=== PATIENT | female | born 1995 | race Caucasian/White ===

== ENCOUNTER 2019-03-15 09:13 | Inpatient (IN) ==
--- NOTE | 2019-03-15 09:55 | Anesthesia Evaluation PreOp ---
Date of Encounter: 03/15/19 Time of Encounter: 09:53 - Past History Planned Operation: Del, G1 induction 39.4wks, Cardiac History: Denies any Significant Hx Pulmonary History: Denies Any Significant HX BRUSH PAINTER History: Other (scolosis, occ radiculopathy reported on right side down to thigh, pings and needles no numbess reported.) Other Medical History: Renal, Other (recent acute cholecystitis was managed with antibotics/pain med/rest/. with intense pain right upper quad and pain with breathing.) Anesthesia History: No Prior Anesthetic Complications, Past Anesthesia Alcohol Use: none Drug use: none Medications and Allergies Azithromycin [Zithromax] 4 tab PO DAILY #4 tablet 06/15/15 [Rx] Sulfamethoxazole/Trimeth DS [Bactrim DS] 1 each PO BID #14 tablet 06/15/15 [Rx] Tylenol 06/15/15 [History] Famotidine [Pepcid] 20 mg PO BID #20 tablet 05/07/17 [Rx] PredniSONE [Deltasone] 40 mg PO DAILY 4 Days tablet 05/07/17 [Rx] EPINEPHrine [Epipen] 0.3 mg IM ONCE PRN #1 kit 05/05/18 [Rx] predniSONE [Prednisone] 50 mg PO DAILY #5 tablet 05/05/18 [Rx] Allergy/AdvReac Type Severity Reaction Status Date / Time ketorolac [From Toradol] Allergy See Verified 02/11/19 11:01 Comments Anesthesia Exam - HEENT Pupil (Motor): Pupils equal Mallampati: III Teeth: Normal Oral Opening: Greater than 3 - BRUSH PAINTER LOC: Oriented BRUSH PAINTER Motor: Normal RUE, Normal LUE, Normal RLE, Normal LLE, Normal Face BRUSH PAINTER Sensory: Normal: RUE, LUE, RLE, LLE, Face - Cardiac Rhythm: Regular Murmur: None - Pulmonary Breath Sounds: bilateral Clear Respiratory Effort: Symmetrical Anesthesia Assess/Plan ASA Score: 2 Level of consciousness: Cooperative, Oriented Anesthetic Plan: General, Spinal, Epidural Monitoring Plan: Standard Monitors Recovery Plan: PACU
[2019-03-15] MEDS ORDERED: Lidocaine -MPF 1% 2 ML VIAL ONE (09:59)
[2019-03-15 10:33] LABS: Amphetamine Screen,Urine Negative ng/mL (Cutoff=1000); Barbiturate Screen,Urine Negative ng/mL (Cutoff=200); Benzodiazepines Screen,Urine Negative ng/mL (Cutoff=200); Cannabinoid Screen,Urine Negative ng/mL (Cutoff = 50); Cocaine Screen,Urine Negative ng/mL (Cutoff= 300); Opiate Screen,Urine Negative ng/mL (Cutoff=300); Phencyclidine Screen,Urine Negative ng/mL (Cutoff=25)
[2019-03-15 10:44] LABS: Alanine Aminotransferase 23 Units/L (7-52); Aspartate Amino Transferase 21 Units/L (13-39); BUN/Creatinine Ratio 9 (6-26); Blood Urea Nitrogen 14 mg/dL (6-20); Lactate Dehydrogenase 159 Units/L (140-271); Uric Acid 7.9 mg/dL (2.3-7.6); eGFR For African Americans 49 (> 60); eGFR For Non-African Americans 40 (> 60)
[2019-03-15 10:50] LABS: Creatinine,Urine 28 mg/dL
[2019-03-15 11:11] LABS: Basophils % 0.3 %; Eosinophils # 0.1 K/mcL (0.0-0.6); Eosinophils % 0.7 %; Hematocrit 27.8 % (35.3-44.9); Hemoglobin 8.7 g/dL (11.5-15.4); Immature Granulocytes % 1.6 % (0-4); Immature Platelets 3.5 % (1.1-6.1); Lymphocytes # 2.8 K/mcL (0.6-4.6); Lymphocytes % 18.6 %; Mean Corpuscular HGB Conc 31.3 g/dL (31.6-35.5); Mean Corpuscular Hemoglobin 27.7 pg (28.0-33.3); Mean Corpuscular Volume 88.5 fL (83.0-100.0); Mean Platelet Volume 10.2 fL (9.4-12.4); Monocytes # 0.7 K/mcL (0.0-1.3); Monocytes % 4.6 %; Neutrophils # 11.3 K/mcL (1.6-8.9); Nucleated Red Blood Cells 0.1 /100 WBC (0); Platelet Count 362 K/mcL (140-400); Red Blood Count 3.14 M/mcL (3.82-4.97); Red Cell Distribution Width 16.2 % (11.5-14.5); Segmented Neutrophils % 74.2 %; White Blood Count 15.2 K/mcL (4.3-11.1)
[2019-03-15 11:12] LABS: Basophils # 0.1 K/mcL (0.0-0.2)
[2019-03-15] MEDS ORDERED: Lidocaine 1% 20 ML MDV INFILT PRN (11:15)
[2019-03-15] MEDS ORDERED: Ondansetron 4 MG/2 ML VIAL IVP PRN (11:15)
[2019-03-15] MEDS ORDERED: Naloxone 0.4 MG/ML INJ IVP PRN (11:15)
[2019-03-15] MEDS ORDERED: Famotidine 20 MG/2 ML VIAL IVP PRN (11:15)
[2019-03-15] MEDS ORDERED: *HR* Nalbuphine 10 MG/ML AMPUL IVP PRN (11:15)
[2019-03-15] MEDS ORDERED: Metoclopramide 10 MG/2 ML VIAL IVP PRN (11:15)
--- NOTE | 2019-03-15 11:49 | OB/GYN History & Physical ---
Date of Encounter: 03/15/19 Time of Encounter: 11:30 Assessment and Plan (1) 39 weeks gestation of Current visit: Yes Status: Acute (2) Type O blood, Rh negative Current visit: Yes Status: Acute Cord blood will be collected at delivery (3) Intrauterine Current visit: Yes Status: Acute (4) Intact amniotic membranes during in third trimester Current visit: Yes Status: Acute (5) Gestational hypertension affecting first Current visit: Yes Status: Acute Admit to L&D for induction of labor Cook catheter with 60 mL in each balloon 50 g misoprostol by mouth Continuous electronic monitoring Pain management plan is epidural-may have upon request Continue to monitor blood pressures at least every hour Labs-Type and screen in addition to already existing PIH labs Plan of care per consult with Dr. Bhatt Anticipate vaginal delivery (6) Late care affecting in third trimester Current visit: Yes Status: Acute Patient was unaware she was until 35 weeks. She is followed with Dr. Thomas since she found out she was History of Present Illness Chief complaint: IOL for Gest Htn HPI: Ms. Osorio is a 23 year old female at 39 weeks 4 days gestation with an estimated date of of 03/18/19 dated by third trimester ultrasound. She presents from the office today with concern for gestational hypertension progressing and possible preeclampsia. She had elevated blood pressures in the office. Her blood pressures on the unit have been normotensive and her PIH evaluation is negative today. However, due to previous 24 urine with elevated protein as well as blood pressures ranging higher than 140 over higher the 90 the decision was made in consult with Dr. Bhatt to proceed with induction. Her has been complicated by late care and gallstones. She has been followed briefly by Dr. Thomas. records are available electronically and have been reviewed. Labs: O- GBS- Hep B- HIV- T. Palladium GC/CL- Rubella nonimmune Varicella nonimmune Past Med Surg Social Fam HX - Past Medical History Medical history: no medical history Psychiatric history: no psych history - Past Surgical History Additional surgical history: dental surgery - Social History Smoking Status: Never smoker Smokeless Tobacco Status: No Alcohol use: none Drug use: none - Family History Mother Living Status: Still Living Hx Family Cardiac Disorders: Yes (MIx5) Hx Family Medical Disorders: Yes (breast tumors, PCOS) Obstetrical History - Pregnancies : 1 Para: 0 Term: 0 : 0 Ab's: 0 Livin Medications and Allergies Gabapentin [Gralise] 300 mg PO DAILY 03/15/19 [History] Pedi Mv No.79/Ferrous Fumarate [Flintstones with Iron Tab Chew] 18 mg PO DAILY 03/15/19 [History] Allergy/AdvReac Type Severity Reaction Status Date / Time ketorolac [From Toradol] Allergy Hives Verified 03/15/19 10:54 Review of System OB All systems PM: reviewed and no additional remarkable complaints except as stated Exam - Constitutional Constitutional: well developed, well nourished, no acute distress, morbidly obese - HEENT HEENT: PERRL, Normocephaly, Mucus Membranes Moist - Neck Neck exam: full ROM - Lungs Respiratory exam: CTAB - Cardiovascular Cardiovascular exam: RRR, +S1, +S2 - Breasts Breast: bilateral: normal - Abdomen Abdomen: Present: bowel sounds normal, gravid, non tender - Extremities Extremities exam: full ROM, normal capillary refill, normal inspection, radial pulses palpable and symmetrical - Vulva Vulva: bilateral: normal - Vagina Vagina: Present: normal moisture - Cervix Dilation: 0 Effacement: 90 Station: -2 - Uterus Uterus exam: Present: normal size, normal contour - Adnexa Adnexa: bilateral: normal - Anus/Rectum Anus/Rectum: Present: normal perianal skin Results Result Diagrams: 03/15/19 09:55 03/15/19 09:55 Abnormal lab results WBC 15.2 K/mcL (4.3-11.1) H 03/15/19 09:55 RBC 3.14 M/mcL (3.82-4.97) L 03/15/19 09:55 Hgb 8.7 g/dL (11.5-15.4) L 03/15/19 09:55 Hct 27.8 % (35.3-44.9) L 03/15/19 09:55 MCH 27.7 pg (28.0-33.3) L 03/15/19 09:55 MCHC 31.3 g/dL (31.6-35.5) L 03/15/19 09:55 RDW 16.2 % (11.5-14.5) H 03/15/19 09:55 Neutrophils # 11.3 K/mcL (1.6-8.9) H 03/15/19 09:55 Nucleated RBCs/100 WBC 0.1 /100 WBC (0) H 03/15/19 09:55 Creatinine 1.57 mg/dL (0.60-1.20) H 03/15/19 09:55 Est GFR ( Amer) 49 (> 60) L 03/15/19 09:55 Est GFR (Non-Af Amer) 40 (> 60) L 03/15/19 09:55 Uric Acid 7.9 mg/dL (2.3-7.6) H 03/15/19 09:55 All other labs normal. - VTE Reasons for not Prescribing Prophylaxis: Treatment not Indicated - Low risk for VTE
[2019-03-15] MEDS ORDERED: miSOPROStol 25 MCG TABLET PO PRN (11:56)
[2019-03-15] MEDS: Ringers Solution, Lactated 1,000 ML IVC SCH ×2 (12:03→15:43)
--- NOTE | 2019-03-15 12:18 | OB Labor Progress Note ---
Date of Encounter: 03/15/19 Time of Encounter: 12:15 Labor Progress Note - Subjective Subjective: Patient denies any contractions - Cervix Cervix: Fingertip/90/-2 - Heart Tones Heart Tones: Baseline 120 Moderate variability Accelerations present 15x15 No decelerations FHR Category I - [place]: No uterine activity - Interventions Interventions: SVE Cook catheter placed with 60cc saline per balloon - Plan Physician notified: No Plan: Continue induction management Recheck cervix in 4 hours Anticipate vaginal delivery
[2019-03-15] MEDS ORDERED: EPHEDrine 50 MG/ML VIAL ONE (15:03)
[2019-03-15] MEDS: Epidural Premix (fent/bupiv) 110 ML EP SCH ×2 (15:39→22:21)
[2019-03-15] MEDS ORDERED: EPHEDrine 50 MG/ML VIAL IVP PRN (15:57)
[2019-03-15] MEDS ORDERED: Epidural Premix (fent/bupiv) 110 ML EP SCH (16:00)
--- NOTE | 2019-03-15 16:02 | OB Labor Progress Note ---
Date of Encounter: 03/15/19 Time of Encounter: 15:54 Labor Progress Note - Subjective Subjective: Pt now comfortable with epidural - Cervix Cervix: Peters balloon still in place - Heart Tones Heart Tones: Baseline 135 Moderate variability Accelerations present 15 x 15 No decelerations FHR category I - [place]: Contractions every 2 minutes and palpate mild to moderate - Interventions Interventions: Spontaneously ruptured at 1516 moderate amount of clear fluid SVE shows Cook catheter not ready to be removed - Plan Physician notified: No Plan: Continue induction management Recheck cervix in 4 hours Monitor her temperature every 2 hours and will start antibiotics if any signs of chorioamnionitis Anticipate vaginal delivery Dr. Bhatt updated on plan of care
--- NOTE | 2019-03-15 16:03 | Anesthesia Procedures ---
Date of Encounter: 03/15/19 Time of Encounter: 15:22 Procedures: Anesthesia - Epidural/Spinal Patient ID/Chart reviewed: Yes Patient examined: Yes OB Eval: Gestational age: term OB Eval: : 1 OB Eval: Contractions: Non-stressed pattern Consent Obtained: Yes Supplemental Oxygen: None/Room Air Site Prep: Aseptic Technique, Sterile prep and drape, 0.5% Chlorhexidine/Alcohol Patient position: upright Local Anesthetic: Lidocaine 1% Amount of Local Anesthetic used: 2 Touhy Needle Gauge: 18 Touhy Needle Depth (cm): 7 Catheter Depth at Skin (cm): 12 Test Dose (1.5% Lido + Epi): Volume given (mls): 3 Test Dose Result: Negative Loading Dose: Other: 8ml from solution Loading Dose Administered: Thru Catheter Infusion Med: 0.125% Bupivacaine w/ 2 mcg/ml Fentanyl Infusion Rate (mls/hr): [address]: Tegaderm, Tape Interspace Used: L3-L4 Loss of Resistance (ARTURO): Yes (saline) Blood: No CSF: Yes (25g purposeful) Paresthesia: No Procedure: first cath pass with heme cleared with flush, no back gtt of heme, positive test, removed, same whole used, up an interspace to ARTURO and easy thread to 12 at skin, negative test, kelly well, vss though out procedure, FHR stable per team.
[2019-03-15] MEDS ORDERED: Ropivacaine/PF 0.2% 20 ML VIAL ONE (18:53)
--- NOTE | 2019-03-15 18:56 | OB Labor Progress Note ---
Date of Encounter: 03/15/19 Time of Encounter: 18:54 Labor Progress Note - Subjective Subjective: Patient not comfortable with epidural and anesthesia been aware - Cervix Cervix: 4/90/-1 - Heart Tones Heart Tones: Baseline 150 Moderate variability Accelerations present 15 x 15 No decelerations FHR category I - [place]: Contractions every 1-2 minutes on toco and palpate mild to moderate. Tachysystole noted over an average of 30 minutes. - Interventions Interventions: SVE Cook catheter removed IUPC placed - Plan Physician notified: Yes Physician notified details: Dr. Bhatt consulted re: Tachysystole Plan: Continue induction management Monitor for 30 minutes to an hour and will make plan based on mvus Frequent position changes with peanut ball Anticipate vaginal delivery
[2019-03-15] MEDS ORDERED: Lidocaine/EPI 1:200k 2% PF 20 ML VIAL ONE ×2 (19:34→23:58)
[2019-03-15] MEDS ORDERED: Terbutaline 1 MG/ML VIAL SQ ONE (19:37)
--- NOTE | 2019-03-15 19:48 | OB Labor Progress Note ---
Date of Encounter: 03/15/19 Time of Encounter: 19:46 Labor Progress Note - Subjective Subjective: Patient now comfortable with epidural - Heart Tones Heart Tones: Baseline 170 Moderate variability Accelerations present 15 x 15 No decelerations FHR category II - [place]: IUPC shows continued tachysystole - Interventions Interventions: Discussed with Dr. Miller Powellaline ordered - Plan Physician notified: Yes Physician notified details: Consult made for terbutaline order Plan: Continue induction management 500 mL bolus Terbutaline 0.25 mg subcutaneous Frequent position changes Anticipate vaginal delivery
[2019-03-15] MEDS ORDERED: NIFEdipine 10 MG CAPSULE PO ONE (20:15)
[2019-03-15] MEDS ORDERED: Penicillin G Potassium 5,000,000 UNIT in 0.9 % Sodium Chloride Mini Bag 100 ML IVPB ONE (20:57)
[2019-03-15] MEDS: Ampicillin 2 GM in 0.9 % Sodium Chloride Mini Bag 100 ML IVPB SCH (21:47)
[2019-03-15] MEDS ORDERED: SODIUM CHLORIDE 0.9% IVPB SCH (22:00)
[2019-03-15] MEDS ORDERED: GENTAMICIN IVPB SCH (22:00)
[2019-03-15] MEDS: Oxytocin 20 units/ LR 1000 mL 20 UNIT/1,000 ML BAG IVC SCH (22:04)
--- NOTE | 2019-03-15 23:28 | OB Labor Progress Note ---
Date of Encounter: 03/15/19 Time of Encounter: 21:40 Labor Progress Note - Subjective Subjective: Pt comfortable with epidural - Vital Signs Vital Signs: T 102.7 - Heart Tones Heart Tones: Baseline 180 Minimal variability No accelerations Variable decelerations FHR Category II - [place]: IUPC with contractions every 2-3 minutes - Interventions Interventions: Start amp and gent - Plan Physician notified: Yes Physician notified details: Dr. Bhatt aware of Category II tracing and fever. Plan: Continue induction management Abx as ordered Frequent position changes Anticipate POC per consult with Dr. Bhatt.
--- NOTE | 2019-03-15 23:33 | OB Labor Progress Note ---
Date of Encounter: 03/15/19 Time of Encounter: 23:30 Labor Progress Note - Subjective Subjective: Pt comfortable with epidural - Heart Tones Heart Tones: Baseline 150 Minimal variability Accelerations present Variable decelerations FHR Category II - [place]: IUPC with contractions every 1-4 minutes - Plan Physician notified: No Plan: Continue induction management Frequent position changes Continue abx Anticipate Dr. Bhatt aware of POC and agrees
--- NOTE | 2019-03-16 00:12 | OB Labor Progress Note ---
Date of Encounter: 03/16/19 Time of Encounter: 00:10 Labor Progress Note - Subjective Subjective: Pt semi-comfortable with epidural - anesthesia notified and to bedside. - Cervix Cervix: 5/90/-2 - Heart Tones Heart Tones: Baseline 145 Moderate variability Accelerations present 15x15 No decelerations FHR Category I - [place]: IUPC shows contractions every 2 minutes - Interventions Interventions: SVE Peanut ball to the right side - Plan Physician notified: No Plan: Continue induction management Continue abx Hourly position changes Anticipate
--- NOTE | 2019-03-16 00:13 | Anesthesia Progress Note ---
Date of Encounter: 03/16/19 Time of Encounter: 00:08 Anesthesia Note - Note Note: 03/16/19 00:08 pt bolus several times with 0.2% rop over last 6hrs, last bolus with 6ml lido with epi, c/o pain bilateral hips and canal, told during checks pt very uncomfortable. informed patient if this bolus does not help, recommendation for another epidural at different level.
[2019-03-16] MEDS ORDERED: Penicillin G Potassium 2,500,000 UNIT in 0.9 % Sodium Chloride 100 ML IVPB SCH (01:00)
[2019-03-16] MEDS: Ampicillin 2 GM in 0.9 % Sodium Chloride Mini Bag 100 ML IVPB SCH ×3 (03:37→17:53)
[2019-03-16] MEDS: Epidural Premix (fent/bupiv) 110 ML EP SCH ×2 (05:35→11:32)
[2019-03-16] MEDS: Oxytocin 20 units/ LR 1000 mL 20 UNIT/1,000 ML BAG IVC SCH (07:40)
[2019-03-16] MEDS ORDERED: D5% in Lactated Ringers 1,000 ML IVC SCH (08:30)
--- NOTE | 2019-03-16 11:59 | OB Labor Progress Note ---
Date of Encounter: 03/16/19 Time of Encounter: 11:58 Labor Progress Note - Subjective Subjective: Pt comfortable with epidural, no complaints - Cervix Cervix: /-2
[2019-03-16] MEDS ORDERED: Aminoglycoside Consult 1 EACH MC ONE (12:38)
[2019-03-16] MEDS ORDERED: Ropivacaine/PF 0.2% 20 ML VIAL ONE (13:27)
[2019-03-16] MEDS ORDERED: Ropivacaine/PF 0.2% 20 ML VIAL EP ONE (13:33)
--- NOTE | 2019-03-16 13:35 | Anesthesia Progress Note ---
Date of Encounter: 03/16/19 Time of Encounter: 13:34 Anesthesia Note - Note Note: 03/16/19 13:34 ropivacaine 0.2% 6cc bolus for break through pain, VSS
--- NOTE | 2019-03-16 14:40 | OB Labor Progress Note ---
Date of Encounter: 03/16/19 Time of Encounter: 14:38 Labor Progress Note - Subjective Subjective: Pt reports some rectal pressure with contractions. - Vital Signs Vital Signs: VSS - Cervix Cervix: 4-5/70/0, anterior aspect of cervix is swollen, caput noted. - Heart Tones Heart Tones: Cat I - Plan Physician notified: Yes Physician notified details: Dr. New notified of no cervical change with more than 4 hours of adequate labor. Cervix now swollen.
[2019-03-16] MEDS: Ringers Solution, Lactated 1,000 ML IVC SCH (15:49)
[2019-03-16] MEDS ORDERED: *HR* Oxytocin 10 UNIT/ML VIAL IM ONE ×2 (16:49)
[2019-03-16] MEDS ORDERED: Chloroprocaine/PF 20 ML VIAL INFILT ONE ×2 (16:49)
[2019-03-16] MEDS ORDERED: *HR* Morphine Sulfate/PF 10 MG/10 ML AMPUL ONE (16:50)
[2019-03-16] MEDS ORDERED: Ondansetron 4 MG/2 ML VIAL IVP PRN ×2 (17:01→20:14)
[2019-03-16] MEDS ORDERED: *HR* Meperidine 25 MG/ML SYRINGE IVP PRN (17:01)
--- NOTE | 2019-03-16 17:15 | OB/GYN Procedure Note ---
Section - Date of procedure: 03/16/19 Preop diagnosis: arrest of descent, other malpresentation Post-op diagnosis: same Procedure: primary low transverse Surgeon: Elvi Mercer Blood Loss: 400 Was there an integration assistant present: No Director Of Perioperative Services: Marcell Hopson Anesthesia Type: Epidural section complications: none Disposition: PACU Specimens: Placenta, Cord blood - Infant (s) Infant A Infant Delivery Date: 03/16/19 Delivery Time: 16:44 Presentation: vertex Position: LOP Route of delivery: other Gender: Female Viability: Viable Pounds: 7 Ounces: 0 Gram Weight: 3.17 kg at 1 minute: 8 at 5 minutes: 9 Shoulder Dystocia: not encountered Specimens collected: cord blood Placenta: partial extraction - Narrative Narrative: Preoperative Diagnosis is failure to progress Postoperative diagnosis Mal presentation asynclitic left occiput posterior presentation Findings are normal uterus and adnexa. Clear fluid. A viable female infant in an asynclitic left occiput posterior presentation. Apgars are [address] New Anesthesia is epidural History Sharri is a 23-year-old 1 female who presented to labor and delivery for induction of labor for mild elevated blood pressures. She underwent labor and elects in and proceeded to 5 cm dilated. She had spontaneous rupture of membranes. She labored for 24-25 hours with spontaneous rupture of membranes her cervix progressed to 5 cm and she had arrest of dilation. There is also arrestive descent of presenting part. At that time she desired to proceed with section. She had 1 episode of fever during labor and she had been placed on ampicillin and gentamicin prior to delivery. Procedure Gibbons taken to the operating suite and after adequate epidural anesthesia was assured she is prepped and draped in usual sterile fashion. a Pfannenstiel incision was created and taken down through the subcutaneous fat and fascia to the rectus muscles. Rectus muscles were irrigated in the midline without any difficulty or consequence to bowel or bladder a bladder flap was created. Uterus was entered in a low transverse fashion. Upon entering the ear clear fluid was noted. A viable female infant was atraumatically delivered from the uterus without difficulty. She was found to be very low within the pelvis in an occiput posterior asynclitic presentation. After delivery of the baby cord was doubly clamped and cut and the infant was handed to our nurses in attendance. Apgars were 8 and 9 at 1 and 5 minutes respectively. When all placental findings were swept clean from the uterus the uterus was closed in one length of Vicryl running interlocking fashion. Copious irrigation was performed. Surgical sites were inspected. Hemostasis was assured. Uterus and adnexa were examined noted to be within normal limits. The uterus was replaced within the abdominal cavity. Again copious irrigation was performed. Surgical sites were inspected. Hemostasis was assured. When all sponge lap and needle and instrument counts were correct 2 the fascia was closed with one length of Vicryl in a running fashion. Again copious irrigation was performed surgical sites were inspected and hemostasis was assured the subcutaneous tissue was reapproximated in interrupted fashion and the skin was reapproximated with madelin. At the end the procedure all sponge lap needle Messman counts were correct 2 the patient and baby were doing well. She will be maintained on antibiotics for minimum of 2 doses postoperatively.
[2019-03-16] MEDS: *HR* HYDROmorphone (PF) 1 MG/ML SYRINGE IVP PRN ×2 (17:53→19:31)
--- NOTE | 2019-03-16 19:53 | Anesthesia Evaluation Post Op ---
Date of Encounter: 03/16/19 Time of Encounter: 19:52 - Vital Signs Vital Signs: 130/80 76 16 - Lungs Lungs: Clear Ascult./Percussion - Cardiovascular Regular Rate - Mental Status Mental Status: Alert & Oriented, Answers Appropriately - Pain Pain Scale: 4 Pain Scale used: Numeric (1 - 10) - Nausea Vomiting Nausea Vomiting: Not Present - Hydration Hydration: NPO, Peters catheter - Discharge PostOp Status: Transfer Patient to floor (fully awake , VSS, no anesthetic complications)
[2019-03-16] MEDS ORDERED: Rho Immune Globulin 1,500 UNIT SYRINGE IM ONE (20:14)
[2019-03-16] MEDS ORDERED: Oxytocin 20 units/ LR 1000 mL 20 UNIT/1,000 ML BAG IVC SCH (20:14)
[2019-03-16] MEDS ORDERED: Sennosides 8.6 MG TABLET PO PRN (20:14)
[2019-03-16] MEDS ORDERED: *HR* OxyCODONE/APAP 5/325 TABLET PO PRN (20:14)
[2019-03-16] MEDS ORDERED: Metoclopramide 10 MG/2 ML VIAL IVP PRN (20:14)
[2019-03-16] MEDS ORDERED: Ampicillin 2 GM in 0.9 % Sodium Chloride Mini Bag 100 ML IVPB SCH (21:07)
[2019-03-16] MEDS: *HR* OxyCODONE Immed Rel 5 MG TABLET PO PRN (22:19)
[2019-03-16] MEDS ORDERED: Gentamicin 100 MG in 0.9 % Sodium Chloride 100 ML IVPB SCH ×2 (23:00)
[2019-03-17] MEDS: Ibuprofen 600 MG TABLET PO PRN ×2 (02:49→08:25)
[2019-03-17 06:54] LABS: Basophils # 0.1 K/mcL (0.0-0.2); Basophils % 0.3 %; Eosinophils # 0.1 K/mcL (0.0-0.6); Eosinophils % 0.4 %; Hemoglobin 8.5 g/dL (11.5-15.4); Lymphocytes # 3.4 K/mcL (0.6-4.6); Lymphocytes % 15.4 %; Mean Corpuscular HGB Conc 31.5 g/dL (31.6-35.5); Mean Corpuscular Hemoglobin 27.2 pg (28.0-33.3); Mean Corpuscular Volume 86.5 fL (83.0-100.0); Mean Platelet Volume 9.7 fL (9.4-12.4); Monocytes # 0.9 K/mcL (0.0-1.3); Monocytes % 4.1 %; Neutrophils # 17.3 K/mcL (1.6-8.9); Nucleated Red Blood Cells 0.2 /100 WBC (0); Platelet Count 373 K/mcL (140-400); Red Blood Count 3.12 M/mcL (3.82-4.97); Red Cell Distribution Width 16.5 % (11.5-14.5); Segmented Neutrophils % 78.8 %
[2019-03-17] MEDS: Prenatal Vit/FA 1 EACH TABLET PO SCH (08:18)
--- NOTE | 2019-03-17 10:15 | Discharge Summary ---
Date of Encounter: 03/17/19 Time of Encounter: 10:13 - Discharge Diagnosis (1) Status post delivery Status: Acute (2) Acute blood loss as cause of postoperative anemia Status: Acute (3) Breast feeding status of mother Status: Acute - Discharge Medications Prescriptions: No Action Pedi Mv No.79/Ferrous Fumarate [Flintstones with Iron Tab Chew] 18 mg PO DAILY Gabapentin [Gralise] 300 mg PO DAILY Home Medications: Gabapentin [Gralise] 300 mg PO DAILY 03/15/19 [History] Pedi Mv No.79/Ferrous Fumarate [Flintstones with Iron Tab Chew] 18 mg PO DAILY 03/15/19 [History] Allergies/Adverse Reactions: Allergy/AdvReac Type Severity Reaction Status Date / Time acetaminophen [From Tylenol] Allergy See Verified 03/16/19 16:10 Comments ketorolac [From Toradol] Allergy Hives Verified 03/15/19 10:54 Data Procedures and tests throughout hospitalization: Laboratory Tests 03/15/19 03/15/19 03/15/19 09:55 09:55 09:55 WBC 15.2 H RBC 3.14 L Hgb 8.7 L Hct 27.8 L MCV 88.5 MCH 27.7 L MCHC 31.3 L RDW 16.2 H Plt Count 362 MPV 10.2 Immature Gran % 1.6 Seg Neutrophils % 74.2 Lymphocytes % 18.6 Monocytes % 4.6 Eosinophils % 0.7 Basophils % 0.3 Neutrophils # 11.3 H Lymphocytes # 2.8 Monocytes # 0.7 Eosinophils # 0.1 Basophils # 0.1 Nucleated RBCs/100 WBC 0.1 H Immature Plt Fraction 3.5 BUN 14 Creatinine 1.57 H Est GFR ( Amer) 49 L Est GFR (Non-Af Amer) 40 L BUN/Creatinine Ratio 9 Uric Acid 7.9 H AST 21 ALT 23 Lactate Dehydrogenase 159 Urine Creatinine 28 Protein/Creatinin Ratio TNP Urine Total Protein < 4 Random Gentamicin Urine Opiates Screen Ur Buprenorphine Scrn Ur Barbiturates Screen Ur Phencyclidine Scrn Ur Amphetamines Screen U Benzodiazepines Scrn Urine Cocaine Screen U Marijuana (THC) Screen Ur Drug Screen Interp Screen Baby's Blood Type Mother's Blood Type Rhogam Indicated Rhogam Req for Mother 03/15/19 03/16/19 03/16/19 09:55 06:17 17:40 WBC RBC Hgb Hct MCV MCH MCHC RDW Plt Count MPV Immature Gran % Seg Neutrophils % Lymphocytes % Monocytes % Eosinophils % Basophils % Neutrophils # Lymphocytes # Monocytes # Eosinophils # Basophils # Nucleated RBCs/100 WBC Immature Plt Fraction BUN Creatinine Est GFR ( Amer) Est GFR (Non-Af Amer) BUN/Creatinine Ratio Uric Acid AST ALT Lactate Dehydrogenase Urine Creatinine Protein/Creatinin Ratio Urine Total Protein Random Gentamicin 9.6 Urine Opiates Screen Negative Ur Buprenorphine Scrn Negative Ur Barbiturates Screen Negative Ur Phencyclidine Scrn Negative Ur Amphetamines Screen Negative U Benzodiazepines Scrn Negative Urine Cocaine Screen Negative U Marijuana (THC) Screen Negative Ur Drug Screen Interp See Below Screen NEGATIVE Baby's Blood Type O RH POSITIVE Mother's Blood Type O RH NEGATIVE Rhogam Indicated YES Rhogam Req for Mother 1 03/17/19 06:24 WBC 22.0 H RBC 3.12 L Hgb 8.5 L Hct 27.0 L MCV 86.5 MCH 27.2 L MCHC 31.5 L RDW 16.5 H Plt Count 373 MPV 9.7 Immature Gran % 1.0 Seg Neutrophils % 78.8 Lymphocytes % 15.4 Monocytes % 4.1 Eosinophils % 0.4 Basophils % 0.3 Neutrophils # 17.3 H Lymphocytes # 3.4 Monocytes # 0.9 Eosinophils # 0.1 Basophils # 0.1 Nucleated RBCs/100 WBC 0.2 H Immature Plt Fraction BUN Creatinine Est GFR ( Amer) Est GFR (Non-Af Amer) BUN/Creatinine Ratio Uric Acid AST ALT Lactate Dehydrogenase Urine Creatinine Protein/Creatinin Ratio Urine Total Protein Random Gentamicin Urine Opiates Screen Ur Buprenorphine Scrn Ur Barbiturates Screen Ur Phencyclidine Scrn Ur Amphetamines Screen U Benzodiazepines Scrn Urine Cocaine Screen U Marijuana (THC) Screen Ur Drug Screen Interp Screen Baby's Blood Type Mother's Blood Type Rhogam Indicated Rhogam Req for Mother Labs on day of discharge: Labs from last 24 hours 03/17/19 03/16/19 06:24 17:40 WBC 22.0 H RBC 3.12 L Hgb 8.5 L Hct 27.0 L MCV 86.5 MCH 27.2 L MCHC 31.5 L RDW 16.5 H Plt Count 373 MPV 9.7 Immature Gran % 1.0 Seg Neutrophils % 78.8 Lymphocytes % 15.4 Monocytes % 4.1 Eosinophils % 0.4 Basophils % 0.3 Neutrophils # 17.3 H Lymphocytes # 3.4 Monocytes # 0.9 Eosinophils # 0.1 Basophils # 0.1 Nucleated RBCs/100 WBC 0.2 H Screen NEGATIVE Baby's Blood Type O RH POSITIVE Mother's Blood Type O RH NEGATIVE Rhogam Indicated YES Rhogam Req for Mother 1 Date of admission: 03/15/19 09:13 Primary care physician: PCP NONE Consults: 03/16/19 20:14 Consult to Full Stack Web Developer ([employer]) [CONS] Routine Reason For Exam: Reason for SW Consult: late care Discharging clinician: Mackenzie Franklin Anticipated date of discharge: 03/17/19 - Discharge Instructions Follow Up With: NONE,PCP [Primary Care Provider] - Hospital Course Hospital course: Date of procedure: 03/16/19 Preop diagnosis: arrest of descent, other malpresentation Post-op diagnosis: same Procedure: primary low transverse Surgeon: Elvi New Quantitated Blood Loss: 400 Was there an assistant community director present: No Lighting Engineering Technician: Marcell Hopson Anesthesia Type: Epidural section complications: none Disposition: PACU Specimens: Placenta, Cord blood - Infant (s) Infant A Delivery Date: 03/16/19 Delivery Time: 16:44 Presentation: vertex Position: LOP Route of delivery: other Gender: Female Viability: Viable Pounds: 7 Ounces: 0 Gram Weight: 3.17 kg at 1 minute: 8 at 5 minutes: 9 Shoulder Dystocia: not encountered Specimens collected: cord blood Placenta: partial extraction - Narrative Narrative: Preoperative Diagnosis is failure to progress Postoperative diagnosis Mal presentation asynclitic left occiput posterior presentation Findings are normal uterus and adnexa. Clear fluid. A viable female in an asynclitic left occiput posterior presentation. Apgars are 8 [address] is Dr. New Anesthesia is epidural History Sharri is a 23-year-old 1 female who presented to labor and delivery for induction of labor for mild elevated blood pressures. She underwent labor and elects in and proceeded to 5 cm dilated. She had spontaneous rupture of membranes. She labored for 24-25 hours with spontaneous rupture of membranes her cervix progressed to 5 cm and she had arrest of dilation. There is also arrestive descent of presenting part. At that time she desired to proceed with section. She had 1 episode of fever during labor and she had been placed on ampicillin and gentamicin prior to delivery. Procedure Gibbons taken to the operating suite and after adequate epidural anesthesia was assured she is prepped and draped in usual sterile fashion. a Pfannenstiel incision was created and taken down through the subcutaneous fat and fascia to the rectus muscles. Rectus muscles were irrigated in the midline without any difficulty or consequence to bowel or bladder a bladder flap was created. Uterus was entered in a low transverse fashion. Upon entering the ear clear fluid was noted. A viable female infant was atraumatically delivered from the uterus without difficulty. She was found to be very low within the pelvis in an occiput posterior asynclitic presentation. After delivery of the baby cord was doubly clamped and cut and the infant was handed to our nurses in attendance. Apgars were 8 and 9 at 1 and 5 minutes respectively. When all placental findings were swept clean from the uterus the uterus was closed in one length of Vicryl running interlocking fashion. Copious irrigation was performed. Surgical sites were inspected. Hemostasis was assured. Uterus and adnexa were examined noted to be within normal limits. The uterus was replaced within the abdominal cavity. Again copious irrigation was performed. Surgical sites were inspected. Hemostasis was assured. When all sponge lap and needle and instrument counts were correct 2 the fascia was closed with one length of Vicryl in a running fashion. Again copious irrigation was performed surgical sites were inspected and hemostasis was assured the subcutaneous tissue was reapproximated in interrupted fashion and the skin was reapproximated with madelin. At the end the procedure all sponge lap needle Messman counts were correct 2 the patient and baby were doing well. She will be maintained on antibiotics for minimum of 2 doses postoperatively. Time Attestation: Total time spent providing and/or coordinating discharge services: - VTE Reasons for not Prescribing Prophylaxis: Treatment not Indicated - Low risk for VTE Documentation of Mechanical Device: Intermittent pneumatic compression device Exam - Constitutional Vitals: Temp Pulse Resp BP Pulse Ox 97.6 F 90 16 119/77 98 03/17/19 07:30 03/17/19 07:30 03/17/19 07:30 03/17/19 07:30 03/17/19 07:30
--- NOTE | 2019-03-17 10:19 | OB/GYN Progress Note ---
Date of Encounter: 03/17/19 Time of Encounter: 10:17 - Assessment and Plan (1) Status post delivery Current Visit: Yes Status: Acute Patient meeting day one milestones. Pain well-controlled with prescribed medications. Voiding without difficulty, tolerating regular diet, bleeding light. No bowel movement yet. Anticipate discharge tomorrow Prophylactic antibiotics to be continued for 48 hours post delivery (2) Acute blood loss as cause of postoperative anemia Current Visit: Yes Status: Acute Increase iron to twice daily with meals (3) Breast feeding status of mother Current Visit: Yes Status: Acute support as needed Will provide breast pump prescription if needed Subjective - Subjective Principal diagnosis: Post-op day 1 status post Interval history: Date of procedure: 03/16/19 Preop diagnosis: arrest of descent, other malpresentation Post-op diagnosis: same Procedure: primary low transverse Surgeon: Elvi Mercer Blood Loss: 400 Was there an property management assistant present: No Pitch Filler: Marcell Hopson Anesthesia Type: Epidural section complications: none Disposition: PACU Specimens: Placenta, Cord blood - Infant (s) Infant A Delivery Date: 03/16/19 Delivery Time: 16:44 Presentation: vertex Position: LOP Route of delivery: other Gender: Female Viability: Viable Pounds: 7 Ounces: 0 Gram Weight: 3.17 kg at 1 minute: 8 at 5 minutes: 9 Shoulder Dystocia: not encountered Specimens collected: cord blood Placenta: partial extraction - Narrative Narrative: Preoperative Diagnosis is failure to progress Postoperative diagnosis Mal presentation asynclitic left occiput posterior presentation Findings are normal uterus and adnexa. Clear fluid. A viable female infant in an asynclitic left occiput posterior presentation. Apgars are 8 and 9. Surgeon is Dr. New Anesthesia is epidural History Sharri is a 23-year-old 1 female who presented to labor and delivery for induction of labor for mild elevated blood pressures. She underwent labor and elects in and proceeded to 5 cm dilated. She had spontaneous rupture of membranes. She labored for 24-25 hours with spontaneous rupture of membranes her cervix progressed to 5 cm and she had arrest of dilation. There is also arrestive descent of presenting part. At that time she desired to proceed with section. She had 1 episode of fever during labor and she had been placed on ampicillin and gentamicin prior to delivery. Procedure Gibbons taken to the operating suite and after adequate epidural anesthesia was assured she is prepped and draped in usual sterile fashion. a Pfannenstiel incision was created and taken down through the subcutaneous fat and fascia to the rectus muscles. Rectus muscles were irrigated in the midline without any difficulty or consequence to bowel or bladder a bladder flap was created. Uterus was entered in a low transverse fashion. Upon entering the ear clear fluid was noted. A viable female was atraumatically delivered from the uterus without difficulty. She was found to be very low within the pelvis in an occiput posterior asynclitic presentation. After delivery of the baby cord was doubly clamped and cut and the was handed to our nurses in attendance. Apgars were 8 and 9 at 1 and 5 minutes respectively. When all placental findings were swept clean from the uterus the uterus was closed in one length of Vicryl running interlocking fashion. Copious irrigation was performed. Surgical sites were inspected. Hemostasis was assured. Uterus and adnexa were examined noted to be within normal limits. The uterus was replaced within the abdominal cavity. Again copious irrigation was performed. Surgical sites were inspected. Hemostasis was assured. When all sponge lap and needle and instrument counts were correct 2 the fascia was closed with one length of Vicryl in a running fashion. Again copious irrigation was performed surgical sites were inspected and hemostasis was assured the subcutaneous tissue was reapproximated in interrupted fashion and the skin was reapproximated with madelin. At the end the procedure all sponge lap needle Messman counts were correct 2 the patient and baby were doing well. She will be maintained on antibiotics for minimum of 2 doses postoperatively. Patient reports: appetite normal, voiding normally, pain well controlled, ambulating normally [place]: doing well, nursing well Objective - Vital Signs Latest vital signs: Vital Signs Temp Pulse Resp BP Pulse Ox 03/17/19 07:30 97.6 F 90 16 119/77 98 03/17/19 03:15 98.5 F 109 16 126/88 99 03/16/19 23:35 99.6 F 111 14 133/93 98 03/16/19 22:30 98.5 F 111 14 138/94 98 03/16/19 21:40 98.2 F 107 14 133/94 97 03/16/19 20:40 98.7 F 113 14 132/95 96 03/16/19 20:00 100.2 F H 108 14 130/89 95 Intake and Output 03/16/19 03/17/19 03/17/19 23:59 07:59 15:59 Intake Total 100 / 500 840 / 1080 240 / 1080 Output Total 1700 / 1700 300 / 600 300 / 600 Balance -1600 / -1200 540 / 480 -60 / 480 Intake: IV Fluids 100 / 500 Ampicillin 2 GM In 0.9 % Sodium 100 / 300 Chloride (Mini-Bag +) 100 ML @ 200 mls/hr IVPB Q6H MARILU Rx#: [id number] Oral 840 / 1080 240 / 1080 Output: Catheter 1700 / 1700 300 / 600 300 / 600 Other: Meal Breakfast Percent of Meal Consumed 50% Weight 109.769 kg Patient Weight 03/17/19 23:59 Weight 109.769 kg - Exam Lungs: bilateral: normal Chest: Normal S1, Normal S2 Extremities: Present: normal Abdomen: Present: normal appearance, soft. Absent: distention, tenderness Incision: Present: normal, dry, intact Uterus: Present: normal, firm Fundal Height: 0 - Labs Labs: Laboratory Results - last 24 hr 03/16/19 03/17/19 17:40 06:24 WBC 22.0 H RBC 3.12 L Hgb 8.5 L Hct 27.0 L MCV 86.5 MCH 27.2 L MCHC 31.5 L RDW 16.5 H Plt Count 373 MPV 9.7 Immature Gran % 1.0 Seg Neutrophils % 78.8 Lymphocytes % 15.4 Monocytes % 4.1 Eosinophils % 0.4 Basophils % 0.3 Neutrophils # 17.3 H Lymphocytes # 3.4 Monocytes # 0.9 Eosinophils # 0.1 Basophils # 0.1 Nucleated RBCs/100 WBC 0.2 H Screen NEGATIVE Baby's Blood Type O RH POSITIVE Mother's Blood Type O RH NEGATIVE Rhogam Indicated YES Rhogam Req for Mother 1
[2019-03-17] MEDS: *HR* OxyCODONE Immed Rel 5 MG TABLET PO PRN ×2 (10:35→20:18)
[2019-03-17] MEDS: metroNIDAZOLE 500 MG TABLET PO SCH ×2 (12:08→20:20)
[2019-03-17] MEDS: cephALEXin 500 MG CAPSULE PO SCH ×2 (12:08→20:20)
[2019-03-17 21:36] VITALS: BP 131/89
[2019-03-18] MEDS: Ibuprofen 600 MG TABLET PO PRN ×2 (01:24→07:50)
[2019-03-18] MEDS: Simethicone 80 MG TAB.CHEW PO PRN ×2 (01:24→12:06)
[2019-03-18] MEDS: cephALEXin 500 MG CAPSULE PO SCH (07:49)
[2019-03-18] MEDS: metroNIDAZOLE 500 MG TABLET PO SCH (07:49)
[2019-03-18] MEDS: Prenatal Vit/FA 1 EACH TABLET PO SCH (07:50)
[2019-03-18] MEDS ORDERED: Rho Immune Globulin 1,500 UNIT SYRINGE IM ONE (09:49)
--- NOTE | 2019-03-18 10:12 | Discharge Summary ---
Date of Encounter: 03/18/19 Time of Encounter: 10:03 - Discharge Diagnosis (1) Status post delivery Priority: Primary Status: Acute Comments: S/P Primary Delivery Day 2. Pain is well controlled Lochia is light and without clots Tolerating regular diet, passing flatus Voiding without difficulty Breast feeding Discharge home today POC per consult with Dr Rivero - Discharge Medications Prescriptions: New Breast Pump [BREAST PUMP] 1 each .ROUTE AD #1 each Docusate [Colace] 100 mg PO BID #30 capsule Ferrous Sulfate 325 mg PO BIDWM #180 tablet metroNIDAZOLE [Flagyl] 500 mg PO TID 8 Days #24 tablet Simethicone [Gas-X] 80 mg PO TID PRN tab.chew PRN Reason: Dyspepsia cephALEXin [Keflex] 500 mg PO TID 8 Days #24 capsule Ibuprofen [Motrin] 600 mg PO Q6H PRN #30 tablet PRN Reason: Cramping Oxycodone HCl/Acetaminophen [Percocet 5-325 mg Tablet] 1 each PO Q6H PRN 5 Days #20 tablet PRN Reason: Pain Continued Pedi Mv No.79/Ferrous Fumarate [Flintstones with Iron Tab Chew] 18 mg PO DAILY Gabapentin [Gralise] 300 mg PO DAILY Home Medications: Gabapentin [Gralise] 300 mg PO DAILY 03/15/19 [History] Pedi Mv No.79/Ferrous Fumarate [Flintstones with Iron Tab Chew] 18 mg PO DAILY 03/15/19 [History] Breast Pump [BREAST PUMP] 1 each .ROUTE AD #1 each 03/18/19 [Rx] Docusate [Colace] 100 mg PO BID #30 capsule 03/18/19 [Rx] Ferrous Sulfate 325 mg PO BIDWM #180 tablet 03/18/19 [Rx] Ibuprofen [Motrin] 600 mg PO Q6H PRN #30 tablet 03/18/19 [Rx] Oxycodone HCl/Acetaminophen [Percocet 5-325 mg Tablet] 1 each PO Q6H PRN 5 Days #20 tablet 03/18/19 [Rx] Simethicone [Gas-X] 80 mg PO TID PRN tab.chew 03/18/19 [Rx] cephALEXin [Keflex] 500 mg PO TID 8 Days #24 capsule 03/18/19 [Rx] metroNIDAZOLE [Flagyl] 500 mg PO TID 8 Days #24 tablet 03/18/19 [Rx] Allergies/Adverse Reactions: Allergy/AdvReac Type Severity Reaction Status Date / Time acetaminophen [From Tylenol] Allergy See Verified 03/16/19 16:10 Comments ketorolac [From Toradol] Allergy Hives Verified 03/15/19 10:54 Data Procedures and tests throughout hospitalization: Laboratory Tests 03/15/19 03/15/19 03/15/19 09:55 09:55 09:55 WBC 15.2 H RBC 3.14 L Hgb 8.7 L Hct 27.8 L MCV 88.5 MCH 27.7 L MCHC 31.3 L RDW 16.2 H Plt Count 362 MPV 10.2 Immature Gran % 1.6 Seg Neutrophils % 74.2 Lymphocytes % 18.6 Monocytes % 4.6 Eosinophils % 0.7 Basophils % 0.3 Neutrophils # 11.3 H Lymphocytes # 2.8 Monocytes # 0.7 Eosinophils # 0.1 Basophils # 0.1 Nucleated RBCs/100 WBC 0.1 H Immature Plt Fraction 3.5 BUN 14 Creatinine 1.57 H Est GFR ( Amer) 49 L Est GFR (Non-Af Amer) 40 L BUN/Creatinine Ratio 9 Uric Acid 7.9 H AST 21 ALT 23 Lactate Dehydrogenase 159 Urine Creatinine 28 Protein/Creatinin Ratio TNP Urine Total Protein < 4 Random Gentamicin Urine Opiates Screen Ur Buprenorphine Scrn Ur Barbiturates Screen Ur Phencyclidine Scrn Ur Amphetamines Screen U Benzodiazepines Scrn Urine Cocaine Screen U Marijuana (THC) Screen Ur Drug Screen Interp Screen Baby's Blood Type Mother's Blood Type Rhogam Indicated Rhogam Req for Mother 03/15/19 03/16/19 03/16/19 09:55 06:17 17:40 WBC RBC Hgb Hct MCV MCH MCHC RDW Plt Count MPV Immature Gran % Seg Neutrophils % Lymphocytes % Monocytes % Eosinophils % Basophils % Neutrophils # Lymphocytes # Monocytes # Eosinophils # Basophils # Nucleated RBCs/100 WBC Immature Plt Fraction BUN Creatinine Est GFR ( Amer) Est GFR (Non-Af Amer) BUN/Creatinine Ratio Uric Acid AST ALT Lactate Dehydrogenase Urine Creatinine Protein/Creatinin Ratio Urine Total Protein Random Gentamicin 9.6 Urine Opiates Screen Negative Ur Buprenorphine Scrn Negative Ur Barbiturates Screen Negative Ur Phencyclidine Scrn Negative Ur Amphetamines Screen Negative U Benzodiazepines Scrn Negative Urine Cocaine Screen Negative U Marijuana (THC) Screen Negative Ur Drug Screen Interp See Below Screen NEGATIVE Baby's Blood Type O RH POSITIVE Mother's Blood Type O RH NEGATIVE Rhogam Indicated YES Rhogam Req for Mother 1 03/17/19 06:24 WBC 22.0 H RBC 3.12 L Hgb 8.5 L Hct 27.0 L MCV 86.5 MCH 27.2 L MCHC 31.5 L RDW 16.5 H Plt Count 373 MPV 9.7 Immature Gran % 1.0 Seg Neutrophils % 78.8 Lymphocytes % 15.4 Monocytes % 4.1 Eosinophils % 0.4 Basophils % 0.3 Neutrophils # 17.3 H Lymphocytes # 3.4 Monocytes # 0.9 Eosinophils # 0.1 Basophils # 0.1 Nucleated RBCs/100 WBC 0.2 H Immature Plt Fraction BUN Creatinine Est GFR ( Amer) Est GFR (Non-Af Amer) BUN/Creatinine Ratio Uric Acid AST ALT Lactate Dehydrogenase Urine Creatinine Protein/Creatinin Ratio Urine Total Protein Random Gentamicin Urine Opiates Screen Ur Buprenorphine Scrn Ur Barbiturates Screen Ur Phencyclidine Scrn Ur Amphetamines Screen U Benzodiazepines Scrn Urine Cocaine Screen U Marijuana (THC) Screen Ur Drug Screen Interp Screen Baby's Blood Type Mother's Blood Type Rhogam Indicated Rhogam Req for Mother Labs on day of discharge: Labs from last 24 hours 03/16/19 17:40 Screen NEGATIVE Rhogam Req for Mother 1 Date of admission: 03/15/19 09:13 Primary care physician: PCP NONE Consults: 03/16/19 20:14 Consult to Precision Lens Grinder ([facility]) [CONS] Routine Reason For Exam: Reason for SW Consult: late care Discharging clinician: Yazmin Thornton Anticipated date of discharge: 03/18/19 - Patient Status Disposition: Home, Self-Care Condition: Good Functional capacity at discharge: independent ambulation Overall status at discharge: patient is progressing back to baseline - Discharge Instructions Follow Up With: NONE,PCP [Primary Care Provider] - Elvi New MD [Partnered Physician] - - Diet and Activity Activity: increase activity as tolerated Diet: regular diet Hospital Course Reason for admission: induction of labor Delivery: section Episiotomy: none Laceration: none Other procedures: none complications: none Discharge diagnosis: IUP at term delivered baby: female Time Attestation: Total time spent providing and/or coordinating discharge services: Time Spent: Less than 30 minutes - VTE Reasons for not Prescribing Prophylaxis: Treatment not Indicated - Low risk for VTE Documentation of Mechanical Device: Intermittent pneumatic compression device Exam - Constitutional Vitals: Temp Pulse Resp BP Pulse Ox 98.0 F 93 18 131/89 100 03/17/19 20:20 03/17/19 20:20 03/17/19 20:20 03/17/19 20:20 03/17/19 20:20 General appearance IM: cooperative, A&O X 3, pleasant - Respiratory Respiratory exam: Present: CTAB - Cardiovascular Cardiovascular exam IM: Present: RRR. Absent: irregular rhythm - GI/Abdominal GI/Abdominal exam IM: normal bowel sounds, soft Incision: normal, dry, intact - Rectal Rectal exam: deferred - Uterine Tone: Firm Uterus Position: 1 Finger Below Umbilicus, Midline - Extremities Exam Extremities exam IM: Present: normal capillary refill, normal inspection, radial pulses palpable and symmetrical. Absent: calf tenderness - Neurological Exam Neurological exam: alert, oriented X3
[2019-03-18] MEDS: *HR* OxyCODONE Immed Rel 5 MG TABLET PO PRN (12:00)
== END 2019-03-18 12:48 | disposition home or self-care (01) | DRG 540 ==
LOC: 1NENULAB → OBSVTOIN 09:13 → 1NENUOBS 03-16 19:53
PROVIDERS: ADMIT Advanced Practice Midwife; ATTEND Advanced Practice Midwife

== ENCOUNTER 2019-10-13 12:59 | Observation (INO) ==
[2019-10-13 14:52] LABS: Basophils % 0.4 %; Eosinophils # 0.2 K/mcL (0.0-0.6); Eosinophils % 2.4 %; Hematocrit 40.1 % (35.3-44.9); Hemoglobin 12.2 g/dL (11.5-15.4); Immature Granulocytes % 0.3 % (0-4); Lymphocytes # 2.6 K/mcL (0.6-4.6); Lymphocytes % 33.7 %; Mean Corpuscular HGB Conc 30.4 g/dL (31.6-35.5); Mean Corpuscular Volume 85.5 fL (83.0-100.0); Mean Platelet Volume 10.2 fL (9.4-12.4); Monocytes # 0.4 K/mcL (0.0-1.3); Neutrophils # 4.5 K/mcL (1.6-8.9); Platelet Count 308 K/mcL (140-400); Red Blood Count 4.69 M/mcL (3.82-4.97); Red Cell Distribution Width 15.1 % (11.5-14.5); Segmented Neutrophils % 58.2 %; White Blood Count 7.7 K/mcL (4.3-11.1)
[2019-10-13 15:03] LABS: BUN/Creatinine Ratio 13 (6-26); Blood Urea Nitrogen 14 mg/dL (6-20); Calcium 9.5 mg/dL (8.6-10.3); Carbon Dioxide 24 mEq/L (23-29); Chloride 110 mEq/L (98-107); Glucose 96 mg/dL (70-105); Osmolality,Calculated 290 (280-300); Sodium 140 mEq/L (136-145); eGFR For African Americans > 60 (> 60); eGFR For Non-African Americans > 60 (> 60)
[2019-10-13 15:15] LABS: Bilirubin,Urine Negative (Negative); Blood,Urine Large (Negative); Clarity,Urine Cloudy (Clear); Color,Urine Red (Yellow); Glucose,Urine (UA) Normal (Normal); Ketones,Urine Negative (Negative); Leukocyte Esterase,Urine Small (Negative); Nitrite,Urine Negative (Negative); Protein,Urine 30 mg/dL (Neg-Trace); Specific Gravity,Urine 1.022 (1.010-1.025); Urobilinogen,Urine Normal (Normal)
[2019-10-13] MEDS ORDERED: Morphine Sulfate Immed Rel 15 MG TABLET PO ONE ×2 (15:15→15:20)
[2019-10-13 15:17] LABS: Albumin 4.1 g/dL (3.5-5.7); Albumin/Globulin Ratio 1.2 (1.1-2.2); Bilirubin,Direct 0.1 mg/dL (0.0-0.2); Bilirubin,Indirect 0.1 mg/dL (0.0-1.0); Bilirubin,Total 0.2 mg/dL (0.3-1.0); Globulin 3.5 g/dL (2.4-3.5); Total Protein 7.6 g/dL (6.4-8.9)
[2019-10-13 15:19] LABS: Bacteria,Urine None Seen per hpf (None-Few); Hyaline Casts,Urine None Seen per lpf (None-Few); RBC,Urine TNTC per hpf (0-3); Squamous Epithelial Cell,Urine Many per lpf (None-Few); WBC,Urine 15-30 per hpf (0-3)
[2019-10-13] MEDS ORDERED: Ampicillin/Sulbactam 3,000 MG in 0.9 % Sodium Chloride Mini Bag 100 ML IVPB ONE (18:44)
[2019-10-13] MEDS ORDERED: Acetaminophen IV 0 MG/0 ML INFUS..BTL ONE (19:27)
[2019-10-13] MEDS ORDERED: Lidocaine HCL 4 ML Topical Solution (Laryng-O-Jet Kit Sterile Pak) TP ONE (19:36)
[2019-10-13] MEDS ORDERED: *HR* FentaNYL (PF) 100 MCG/2 ML VIAL ONE (19:38)
[2019-10-13] MEDS ORDERED: *HR* Propofol 200 MG/20 ML VIAL IVP ONE (19:38)
[2019-10-13] MEDS ORDERED: *HR* Midazolam HCl 2 MG/2 ML VIAL ONE (19:38)
[2019-10-13] MEDS ORDERED: Lidocaine -MPF 2% 2 ML VIAL ONE (19:38)
[2019-10-13] MEDS ORDERED: Dexamethasone 4 MG/ML VIAL ONE (19:39)
[2019-10-13] MEDS ORDERED: *HR* Rocuronium Bromide 50 MG/5 ML VIAL ONE ×2 (19:39→22:20)
[2019-10-13] MEDS ORDERED: Ondansetron 4 MG/2 ML VIAL ONE (19:39)
[2019-10-13] MEDS ORDERED: *HR* HYDROMORPHONE 2 MG/ML VIAL ONE (19:42)
[2019-10-13] MEDS ORDERED: *HR* Succinylcholine 200 MG/10 ML VIAL IVP ONE (20:05)
[2019-10-13] MEDS ORDERED: Ondansetron 4 MG/2 ML VIAL IVP ONE (20:08)
[2019-10-13] MEDS ORDERED: *HR* OxyCODONE Immed Rel 5 MG TABLET PO PRN (20:08)
[2019-10-13] MEDS ORDERED: Bupivacaine/EPI 1:200k 0.5%PF 30 ML VIAL ONE (20:18)
[2019-10-13] MEDS ORDERED: Neostigmine Methylsulfate 3 MG/3 ML SYRINGE ONE (23:56)
[2019-10-13] MEDS ORDERED: *HR* PHENYLEPHRINE 1,000 MCG/10 ML SYRINGE IVP ONE (23:56)
[2019-10-14] MEDS: *HR* HYDROmorphone PF 0.5 MG/0.5 ML SYRINGE IVP PRN ×4 (00:33→00:59)
[2019-10-14] MEDS ORDERED: Ondansetron 4 MG/2 ML VIAL IVP PRN (01:34)
[2019-10-14] MEDS ORDERED: *HR* OxyCODONE/APAP 5/325 TABLET PO PRN (01:34)
[2019-10-14] MEDS: 0.9 % Sodium Chloride 1,000 ML IVC SCH ×3 (02:48→19:34)
[2019-10-14 05:12] LABS: Basophils % 0.2 %; Hematocrit 34.3 % (35.3-44.9); Immature Granulocytes % 0.4 % (0-4); Lymphocytes # 0.8 K/mcL (0.6-4.6); Lymphocytes % 8.3 %; Mean Corpuscular HGB Conc 30.9 g/dL (31.6-35.5); Mean Corpuscular Hemoglobin 26.7 pg (28.0-33.3); Mean Corpuscular Volume 86.4 fL (83.0-100.0); Mean Platelet Volume 9.7 fL (9.4-12.4); Monocytes # 0.1 K/mcL (0.0-1.3); Monocytes % 1.2 %; Neutrophils # 8.6 K/mcL (1.6-8.9); Platelet Count 302 K/mcL (140-400); Red Blood Count 3.97 M/mcL (3.82-4.97); Red Cell Distribution Width 14.8 % (11.5-14.5); Segmented Neutrophils % 89.9 %; White Blood Count 9.5 K/mcL (4.3-11.1)
[2019-10-14 05:24] LABS: Hemoglobin 10.6 g/dL (11.5-15.4)
[2019-10-14 05:30] LABS: Alanine Aminotransferase 334 Units/L (7-52); Albumin 3.8 g/dL (3.5-5.7); Albumin/Globulin Ratio 1.3 (1.1-2.2); Alkaline Phosphatase 96 Units/L (34-104); Aspartate Amino Transferase 296 Units/L (13-39); BUN/Creatinine Ratio 15 (6-26); Bilirubin,Total 0.8 mg/dL (0.3-1.0); Blood Urea Nitrogen 15 mg/dL (6-20); Calcium 8.7 mg/dL (8.6-10.3); Carbon Dioxide 21 mEq/L (23-29); Chloride 111 mEq/L (98-107); Glucose 137 mg/dL (70-105); Osmolality,Calculated 289 (280-300); Potassium 4.1 mEq/L (3.5-5.1); Sodium 138 mEq/L (136-145); Total Protein 6.8 g/dL (6.4-8.9); eGFR For African Americans > 60 (> 60); eGFR For Non-African Americans > 60 (> 60)
[2019-10-14] MEDS ORDERED: Ketorolac 15 MG/ML VIAL IVP SCH (06:00)
[2019-10-14] MEDS: Ampicillin/Sulbactam 3,000 MG in 0.9 % Sodium Chloride Mini Bag 100 ML IVPB SCH ×4 (06:06→23:24)
[2019-10-14] MEDS: Pantoprazole 40 MG VIAL IVP SCH ×2 (06:07→17:14)
[2019-10-14] MEDS: Gabapentin 300 MG CAPSULE PO SCH (08:56)
[2019-10-14] MEDS: Ibuprofen 400 MG TABLET PO PRN (10:46)
[2019-10-15 02:13] LABS: Basophils % 0.2 %; Eosinophils % 0.1 %; Hematocrit 31.2 % (35.3-44.9); Hemoglobin 9.4 g/dL (11.5-15.4); Immature Granulocytes % 0.2 % (0-4); Lymphocytes # 2.7 K/mcL (0.6-4.6); Lymphocytes % 27.6 %; Mean Corpuscular HGB Conc 30.1 g/dL (31.6-35.5); Mean Corpuscular Hemoglobin 26.2 pg (28.0-33.3); Mean Corpuscular Volume 86.9 fL (83.0-100.0); Mean Platelet Volume 10.1 fL (9.4-12.4); Monocytes # 0.5 K/mcL (0.0-1.3); Monocytes % 5.2 %; Neutrophils # 6.4 K/mcL (1.6-8.9); Platelet Count 212 K/mcL (140-400); Red Blood Count 3.59 M/mcL (3.82-4.97); Red Cell Distribution Width 15.4 % (11.5-14.5); Segmented Neutrophils % 66.7 %; White Blood Count 9.6 K/mcL (4.3-11.1)
[2019-10-15 02:30] LABS: Albumin 3.6 g/dL (3.5-5.7); Albumin/Globulin Ratio 1.3 (1.1-2.2); Bilirubin,Direct 0.1 mg/dL (0.0-0.2); Bilirubin,Indirect 0.1 mg/dL (0.0-1.0); Bilirubin,Total 0.2 mg/dL (0.3-1.0); Globulin 2.8 g/dL (2.4-3.5); Total Protein 6.4 g/dL (6.4-8.9)
[2019-10-15] MEDS: 0.9 % Sodium Chloride 1,000 ML IVC SCH ×3 (04:16→23:14)
[2019-10-15] MEDS: Ibuprofen 400 MG TABLET PO PRN ×2 (04:52→23:13)
[2019-10-15] MEDS: Pantoprazole 40 MG VIAL IVP SCH ×2 (04:53→17:19)
[2019-10-15] MEDS: Ampicillin/Sulbactam 3,000 MG in 0.9 % Sodium Chloride Mini Bag 100 ML IVPB SCH ×4 (05:14→23:14)
[2019-10-15] MEDS: Gabapentin 300 MG CAPSULE PO SCH (06:46)
[2019-10-15] MEDS ORDERED: Ibuprofen 400 MG TABLET PO ONE (10:19)
[2019-10-15] MEDS ORDERED: 0.9 % Sodium Chloride 1,000 ML IV.SOLN ONE (10:19)
[2019-10-15] MEDS ORDERED: 0.9 % Sodium Chloride Mini Bag 100 ML ONE (12:24)
[2019-10-16] MEDS: Ibuprofen 400 MG TABLET PO PRN (05:56)
[2019-10-16] MEDS: Ampicillin/Sulbactam 3,000 MG in 0.9 % Sodium Chloride Mini Bag 100 ML IVPB SCH (05:57)
[2019-10-16] MEDS: 0.9 % Sodium Chloride 1,000 ML IVC SCH ×2 (05:57→08:26)
[2019-10-16] MEDS: Pantoprazole 40 MG VIAL IVP SCH (05:57)
[2019-10-16 06:35] VITALS: BP 133/93
[2019-10-16] MEDS: Gabapentin 300 MG CAPSULE PO SCH (08:25)
[2019-10-16] MEDS ORDERED: FLU Vac QV 19-20 (6Month+)/PF 0.5 ML SYRINGE IM ONE (08:44)
== END 2019-10-16 10:56 | disposition home or self-care (01) ==
LOC: 3ANU 12:59 → EMEROOARM 12:59 → 3ANU 19:18
PROVIDERS: ADMIT Surgery; ATTEND Surgery

== ENCOUNTER 2021-08-30 14:23 | Inpatient (IN) ==
[2021-08-30 13:35] LABS: Protein/Creatinine Ratio,Urine 0.83 mg/mg (0.00-0.20)
[~2021-08-30 14:23] MED LIST: *HR* Enoxaparin 60 MG/0.6 ML SYRINGE SQ SCH; CeFAZolin 2,000 MG/120 ML BAG IVPB ONE; Famotidine 20 MG/2 ML VIAL IVP ONE; Ondansetron 4 MG/2 ML VIAL IVP PRN; Oxytocin 20 units/ LR 1000 mL 20 UNIT/1,000 ML BAG IVC ONE; Ringers Solution, Lactated 1,000 ML IVC SCH
[2021-08-30 14:26] LABS: Basophils % 0.4 %; Hematocrit 37.8 % (35.3-44.9); Hemoglobin 11.4 g/dL (11.5-15.4); Immature Granulocytes % 2.3 % (0-4); Lymphocytes # 1.6 K/mcL (0.6-4.6); Lymphocytes % 17.9 %; Mean Corpuscular HGB Conc 30.2 g/dL (31.6-35.5); Mean Corpuscular Hemoglobin 26.2 pg (28.0-33.3); Mean Corpuscular Volume 86.9 fL (83.0-100.0); Mean Platelet Volume 12.3 fL (9.4-12.4); Monocytes # 0.4 K/mcL (0.0-1.3); Monocytes % 4.1 %; Neutrophils # 6.8 K/mcL (1.6-8.9); Nucleated Red Blood Cells 0.4 /100 WBC (0); Platelet Count 142 K/mcL (140-400); Red Blood Count 4.35 M/mcL (3.82-4.97); Segmented Neutrophils % 75.3 %
[2021-08-30] MEDS ORDERED: Oxytocin 20 units/ LR 1000 mL 20 UNIT/1,000 ML BAG IVC SCH ×2 (14:30→20:09)
[2021-08-30] MEDS ORDERED: *HR* Morphine Sulfate/PF 10 MG/10 ML AMPUL ONE (14:38)
[2021-08-30] MEDS ORDERED: Ondansetron 4 MG/2 ML VIAL ONE (14:39)
[2021-08-30] MEDS ORDERED: *HR* FentaNYL (PF) 100 MCG/2 ML VIAL ONE (14:39)
[2021-08-30] MEDS ORDERED: EPHEDrine 50 MG/ML VIAL ONE (14:39)
[2021-08-30] MEDS: Metoclopramide 10 MG/2 ML VIAL IVP ONE ×2 (14:45→15:22)
[2021-08-30] MEDS ORDERED: Ondansetron 4 MG/2 ML VIAL IVP PRN ×2 (15:02→20:09)
[2021-08-30] MEDS ORDERED: *HR* HYDROmorphone PF 0.5 MG/0.5 ML SYRINGE IVP PRN (15:02)
[2021-08-30] MEDS ORDERED: Promethazine 6.25 MG in Water for inj. (sterile) 20 ML IVPB PRN (15:02)
[2021-08-30 15:07] LABS: Alanine Aminotransferase 13 Units/L (7-52); Aspartate Amino Transferase 42 Units/L (13-39); BUN/Creatinine Ratio 10 (6-26); Blood Urea Nitrogen 19 mg/dL (6-20); Lactate Dehydrogenase 406 Units/L (140-271); eGFR For African Americans 39 (> 60); eGFR For Non-African Americans 32 (> 60)
[2021-08-30] MEDS ORDERED: CeFAZolin 2,000 MG/120 ML BAG IVPB ONE (15:13)
[2021-08-30] MEDS ORDERED: Measles/Mumps/Rubella Vacc 0.5 ML VIAL SQ ONE (20:09)
[2021-08-30] MEDS ORDERED: Rho Immune Globulin 1,500 UNIT SYRINGE IM ONE (20:09)
[2021-08-30] MEDS ORDERED: Metoclopramide 10 MG/2 ML VIAL IVP PRN (20:09)
[2021-08-30] MEDS ORDERED: Simethicone 80 MG TAB.CHEW PO PRN (20:09)
[2021-08-30] MEDS ORDERED: Naloxone 0.4 MG/ML INJ IVP PRN (20:09)
[2021-08-30] MEDS: Ibuprofen 600 MG TABLET PO SCH (20:44)
[2021-08-30] MEDS: metroNIDAZOLE 500 MG TABLET PO SCH (20:44)
[2021-08-30] MEDS: cephALEXin 500 MG CAPSULE PO SCH (20:44)
[2021-08-30] MEDS: *HR* OxyCODONE Immed Rel 5 MG TABLET PO PRN (20:44)
[2021-08-31] MEDS: Ibuprofen 600 MG TABLET PO SCH ×4 (02:39→21:11)
[2021-08-31] MEDS: *HR* OxyCODONE Immed Rel 5 MG TABLET PO PRN ×4 (02:39→17:46)
[2021-08-31] MEDS: *HR* Enoxaparin 60 MG/0.6 ML SYRINGE SQ SCH ×2 (05:16→17:28)
[2021-08-31 05:40] LABS: Protein/Creatinine Ratio,Urine 0.51 mg/mg (0.00-0.20)
[2021-08-31 05:42] LABS: Basophils % 0.3 %; Hematocrit 32.8 % (35.3-44.9); Immature Granulocytes % 3.2 % (0-4); Lymphocytes # 1.7 K/mcL (0.6-4.6); Lymphocytes % 13.3 %; Mean Corpuscular HGB Conc 30.5 g/dL (31.6-35.5); Mean Corpuscular Hemoglobin 26.3 pg (28.0-33.3); Mean Corpuscular Volume 86.3 fL (83.0-100.0); Mean Platelet Volume 11.9 fL (9.4-12.4); Monocytes # 0.5 K/mcL (0.0-1.3); Neutrophils # 9.9 K/mcL (1.6-8.9); Nucleated Red Blood Cells 0.2 /100 WBC (0); Platelet Count 178 K/mcL (140-400); Red Cell Distribution Width 18.9 % (11.5-14.5); Segmented Neutrophils % 79.2 %; White Blood Count 12.5 K/mcL (4.3-11.1)
[2021-08-31 05:50] LABS: Alanine Aminotransferase 34 Units/L (7-52); Aspartate Amino Transferase 77 Units/L (13-39); BUN/Creatinine Ratio 10 (6-26); Blood Urea Nitrogen 18 mg/dL (6-20); Lactate Dehydrogenase 292 Units/L (140-271); Uric Acid 11.9 mg/dL (2.3-7.6); eGFR For African Americans 39 (> 60); eGFR For Non-African Americans 32 (> 60)
[2021-08-31] MEDS: Prenatal Vit/FA 1 EACH TABLET PO SCH (08:25)
[2021-08-31] MEDS: cephALEXin 500 MG CAPSULE PO SCH ×3 (08:25→21:11)
[2021-08-31] MEDS: metroNIDAZOLE 500 MG TABLET PO SCH ×3 (08:26→21:10)
[2021-08-31] MEDS ORDERED: Rho Immune Globulin 1,500 UNIT SYRINGE IM ONE (17:15)
[2021-09-01] MEDS: *HR* OxyCODONE Immed Rel 5 MG TABLET PO PRN ×5 (00:45→21:33)
[2021-09-01] MEDS: *HR* Enoxaparin 60 MG/0.6 ML SYRINGE SQ SCH ×2 (05:34→18:49)
[2021-09-01] MEDS: Ibuprofen 600 MG TABLET PO SCH ×3 (05:34→21:33)
[2021-09-01] MEDS: cephALEXin 500 MG CAPSULE PO SCH ×2 (09:05→15:19)
[2021-09-01] MEDS: metroNIDAZOLE 500 MG TABLET PO SCH ×2 (09:05→15:19)
[2021-09-01] MEDS: Prenatal Vit/FA 1 EACH TABLET PO SCH (09:05)
[2021-09-02] MEDS: *HR* OxyCODONE Immed Rel 5 MG TABLET PO PRN ×2 (02:00→06:03)
[2021-09-02 02:33] VITALS: TEMP 97.8; O2SAT 97
[2021-09-02] MEDS: Ibuprofen 600 MG TABLET PO SCH (06:03)
[2021-09-02] MEDS: *HR* Enoxaparin 60 MG/0.6 ML SYRINGE SQ SCH (06:04)
[2021-09-02 07:08] VITALS: BP 130/88; PULSE 90
[2021-09-02] MEDS: Prenatal Vit/FA 1 EACH TABLET PO SCH (08:04)
== END 2021-09-02 13:05 | disposition home or self-care (01) | DRG 539 ==
LOC: 1NENULAB → 1NENUOBS 19:40
PROVIDERS: ADMIT Obstetrics & Gynecology; ATTEND Obstetrics & Gynecology